=== PATIENT | male | born 1970 | race Caucasian/White ===

== ENCOUNTER 2016-09-30 02:35 | Inpatient (IN) | payer SELFPAY ==
[2016-09-30] VITALS (9 sets, daily range): BP systolic 119–158; BP diastolic 71–94
[~2016-09-30] VITALS: Ht 167.6 cm; Wt 61.7 kg
[~2016-09-30 02:35] MED LIST: CHLO5CAP3 PO; DEXA4TAB PO; L25 PO; PHEN100C4 PO
[2016-09-30] MEDS ORDERED: SODIUM CHLORIDE 0.9% 1,000 ML IV ONE (04:00)
[2016-09-30] MEDS ORDERED: LORAZEPAM 2MG/ML CPJ IV ONE (04:00)
[2016-09-30 04:10] LABS: HEMATOCRIT. 40.3 % (42.0-52.0); HEMOGLOBIN. 13.9 g/dL (14.0-18.0); MEAN CORPUSCULAR VOLUME 89.7 fL (80.0-94.0); MEAN PLATELET VOLUME 7.6 fl (7.4-10.4); PLATELET 136 x1000/uL (130-400); RED CELL DISTRIBUTION WIDTH 15.5 % (11.6-14.6)
[2016-09-30 04:29] LABS: CARBON DIOXIDE 25 mEq/L (21-32); CHLORIDE 99 mEq/L (98-107); ETHANOL BLOOD < 10 mg/dL
[2016-09-30] MEDS ORDERED: LORAZEPAM 2MG/ML CPJ ONE (04:32)
[2016-09-30] MEDS: LORAZEPAM 2MG/ML CPJ IV NR ×2 (04:58→06:10)
[2016-09-30] MEDS ORDERED: ACETAMINOPHEN 650MG SUPP ONE (04:58)
[2016-09-30] MEDS ORDERED: ACETAMINOPHEN 325MG SUPP ONE (04:58)
[2016-09-30] MEDS ORDERED: ACETAMINOPHEN 650MG SUPP PR ONE (05:00)
[2016-09-30] MEDS: LEVETIRACETAM 500MG PREMIX 100 ML IV NR ×2 (05:09→05:52)
[2016-09-30 07:31] LABS: PLATELET ESTIMATE NORMAL
[2016-09-30] MEDS ORDERED: DOCUSATE SODIUM 100MG CAPSULE PO PRN (08:30)
[2016-09-30] MEDS ORDERED: DIPHENHYDRAMINE 50MG/ML VIAL IV PRN (08:30)
[2016-09-30] MEDS ORDERED: MAGNESIUM/ALUMINUM HYDROXIDE/SIMETHICONE 30ML UDC PO PRN (08:30)
[2016-09-30] MEDS ORDERED: NA PHOS,M-B/NA PHOS,DI-BA ENEMA 118ML PR PRN (08:30)
[2016-09-30] MEDS ORDERED: GUAIFENESIN 200MG/10ML SUGAR FREE UDC PO PRN (08:30)
[2016-09-30] MEDS ORDERED: CLONIDINE 0.1MG TABLET PO PRN (08:30)
[2016-09-30] MEDS ORDERED: NITROGLYCERIN 0.4MG TABLET SL SL PRN (08:30)
[2016-09-30] MEDS ORDERED: ONDANSETRON HCL 4MG/2ML VIAL IV PRN (08:30)
[2016-09-30] MEDS ORDERED: ACETAMINOPHEN 325MG TABLET PO PRN (08:30)
[2016-09-30] MEDS ORDERED: IPRATROPIUM/ALBUTEROL 0.5-3(2.5)MG/3ML NEB INH PRN (08:30)
[2016-09-30] MEDS: METOPROLOL TARTRATE 25MG TABLET PO SCH ×2 (09:00→20:49)
[2016-09-30] MEDS: ENOXAPARIN 40MG/0.4ML SYR SUBCUT SCH (09:48)
[2016-09-30] MEDS: FAMOTIDINE 20MG/2ML VIAL IV SCH ×2 (09:48→20:49)
[2016-09-30] MEDS ORDERED: MVI, ADULT NO.1 10 ML, FOLIC ACID 1 MG, THIAMINE HCL 100 MG in SODIUM CHLORIDE 0.9% 1,0... IV SCH ×4 (10:00)
[2016-09-30] MEDS: SUCRALFATE 1 G/10 ML UDC PO SCH ×3 (13:04→20:49)
[2016-09-30] MEDS: CHLORDIAZEPOXIDE 25MG CAPSULE PO SCH ×2 (13:04→21:28)
[2016-09-30 15:25] LABS: CREATINE KINASE 543 IU/L (39-308); CREATINE KINASE MB FRACTION 1.9 ng/mL (0.5-3.6); TROPONIN I < 0.02 ng/mL (0.00-0.04)
[2016-09-30] MEDS: LORAZEPAM 2MG/ML CPJ IV PRN (19:39)
[2016-09-30 23:23] LABS: CREATINE KINASE 663 IU/L (39-308); CREATINE KINASE MB FRACTION 2.9 ng/mL (0.5-3.6); TROPONIN I < 0.02 ng/mL (0.00-0.04)
[2016-10-01] VITALS (7 sets, daily range): BP systolic 114–142; BP diastolic 71–82
[2016-10-01] MEDS: LORAZEPAM 2MG/ML CPJ IV PRN ×2 (00:46→05:12)
[2016-10-01] MEDS: CHLORDIAZEPOXIDE 25MG CAPSULE PO SCH (05:42)
[2016-10-01] MEDS: METOPROLOL TARTRATE 25MG TABLET PO SCH (10:29)
[2016-10-01] MEDS: FAMOTIDINE 20MG/2ML VIAL IV SCH (10:36)
[2016-10-01] MEDS: ENOXAPARIN 40MG/0.4ML SYR SUBCUT SCH (10:36)
[2016-10-01] MEDS: SUCRALFATE 1 G/10 ML UDC PO SCH (12:30)
== END 2016-10-01 14:05 | disposition home or self-care (01) | DRG 775 ==
LOC: ER 02:35 → 5EST 04:32 → EDBEDREQ 04:39 → EDBEDREQSVC 04:45 → ENRESERV 05:33
PROVIDERS: ADMIT Internal Medicine; ATTEND Internal Medicine
DX: F10.231 Alcohol dependence with withdrawal delirium (principal); G40.89 Other seizures; Y90.0 Blood alcohol level of less than 20 mg/100 ml; Z79.899 Other long term (current) drug therapy
CPT/HCPCS: 36415; 70450; 80053; 82550; 82553; 83036; 84484; 85025; 93005; 93970; 96365; 96372; 96375; 96376; 99291; G0482; J1650; J1953; J2060; J3411; J3490; J7030

== ENCOUNTER 2017-04-13 02:43 | Emergency (ER) | payer MEDICAID ==
[~2017-04-13] VITALS: Ht 170.2 cm; Wt 73.0 kg
[2017-04-13] MEDS ORDERED: ONDANSETRON HCL 4MG/2ML VIAL IV STA (04:30)
[2017-04-13] MEDS ORDERED: PHENYTOIN SODIUM 1,000 MG in SODIUM CHLORIDE 0.9% 100 ML IV ONE (04:30)
[2017-04-13] MEDS ORDERED: SODIUM CHLORIDE 0.9% 1,000 ML IV ONE (04:30)
[2017-04-13 04:52] LABS: HEMATOCRIT. 38.6 % (42.0-52.0); HEMOGLOBIN. 13.2 g/dL (14.0-18.0); MEAN CORPUSCULAR HEMOGLOBIN 31.1 pg (28.0-32.0); MEAN CORPUSCULAR VOLUME 90.7 fL (80.0-94.0); MEAN PLATELET VOLUME 7.1 fl (7.4-10.4); PLATELET 190 x1000/uL (130-400); RED BLOOD CELL COUNT 4.26 mill/uL (4.7-6.1); RED CELL DISTRIBUTION WIDTH 14.6 % (11.6-14.6)
[2017-04-13 05:09] LABS: CHLORIDE 98 mEq/L (98-107)
[2017-04-13 06:00] LABS: PLATELET ESTIMATE NORMAL
[2017-04-13 06:47] VITALS: BP 128/74
== END 2017-04-13 06:50 | disposition home or self-care (01) ==
LOC: ER 02:49
DX: G40.909 Epilepsy, unspecified, not intractable, without status epilepticus (principal); G93.89 Other specified disorders of brain; R25.1 Tremor, unspecified; J32.9 Chronic sinusitis, unspecified; F10.20 Alcohol dependence, uncomplicated; Z91.14 Patient's other noncompliance with medication regimen
CPT/HCPCS: 36415; 70450; 71045; 80053; 85025; 96365; 96375; 99285; J1165; J2405; J7030; J7050

== ENCOUNTER 2018-06-06 06:09 | Emergency (ER) | payer SELFPAY ==
[~2018-06-06] VITALS: Ht 165.1 cm; Wt 74.0 kg
[2018-06-06 07:58] LABS: HEMATOCRIT. 43.4 % (42.0-52.0); HEMOGLOBIN. 14.4 g/dL (14.0-18.0); MEAN CORPUSCULAR HEMOGLOBIN 31.2 pg (28.0-32.0); MEAN CORPUSCULAR VOLUME 94.2 fL (80.0-94.0); MEAN PLATELET VOLUME 7.5 fl (7.4-10.4); PLATELET 330 x1000/uL (130-400); RED BLOOD CELL COUNT 4.61 mill/uL (4.7-6.1); RED CELL DISTRIBUTION WIDTH 14.9 % (11.6-14.6)
[2018-06-06 08:05] LABS: CHLORIDE 102 mEq/L (98-107)
[2018-06-06 08:09] LABS: ETHANOL BLOOD < 10 mg/dL
[2018-06-06 08:14] LABS: PLATELET ESTIMATE NORMAL
[2018-06-06 09:00] LABS: CLARITY URINE CLEAR (CLEAR); COLOR URINE YELLOW (YELLOW); KETONES URINE TRACE (NEGATIVE); LEUKOCYTE ESTERASE URINE NEGATIVE (NEGATIVE); NITRITE URINE NEGATIVE (NEGATIVE); OCCULT BLOOD URINE NEGATIVE (NEGATIVE); PROTEIN URINE 1+ (NEGATIVE); SPECIFIC GRAVITY URINE 1.013 (1.005-1.030); UROBILINOGEN URINE 0.2 E.U./dL (0.2-1.0)
[2018-06-06] MEDS ORDERED: LEVETIRACETAM 1000MG/100ML 100 ML IV ONE (09:15)
[2018-06-06 09:23] LABS: *AMPHETAMINES SCREEN URINE NEGATIVE (NEGATIVE); *BARBITURATES SCREEN URINE NEGATIVE (NEGATIVE); *BENZODIAZEPINES SCREEN URINE PRESUMTIVE POSITIVE (NEGATIVE); *COCAINE SCREEN URINE NEGATIVE (NEGATIVE); METHADONE URINE SCREEN NEGATIVE (NEGATIVE); OPIATES URINE SCREEN NEGATIVE (NEGATIVE); PHENCYCLIDINE URINE SCREEN NEGATIVE (NEGATIVE)
[2018-06-06 09:24] LABS: CANNABINOID URINE SCREEN NEGATIVE (NEGATIVE)
[2018-06-06 11:48] VITALS: BP 143/86
== END 2018-06-06 11:57 | disposition home or self-care (01) ==
LOC: ER 06:09
DX: R56.9 Unspecified convulsions (principal); Z91.14 Patient's other noncompliance with medication regimen; Z79.899 Other long term (current) drug therapy
CPT/HCPCS: 36415; 80053; 80185; 80305; 80320; 81003; 85025; 96374; 99283; J1953; Z7610; G0480

== ENCOUNTER 2018-09-16 19:51 | Inpatient (IN) | payer SELFPAY ==
[~2018-09-16] VITALS: Ht 154.9 cm; Wt 72.6 kg
[2018-09-16] MEDS ORDERED: SODIUM CHLORIDE 0.9% 1,000 ML IV ONE (20:19)
[2018-09-16] MEDS ORDERED: LORAZEPAM 2MG/ML CPJ IV ONE ×2 (20:30→21:00)
[2018-09-16 21:06] LABS: HEMATOCRIT. 40.1 % (42.0-52.0); HEMOGLOBIN. 13.7 g/dL (14.0-18.0); MEAN CORPUSCULAR HEMOGLOBIN 31.8 pg (28.0-32.0); MEAN CORPUSCULAR VOLUME 93.1 fL (80.0-94.0); MEAN PLATELET VOLUME 7.5 fl (7.4-10.4); PLATELET 103 x1000/uL (130-400); RED BLOOD CELL COUNT 4.31 mill/uL (4.7-6.1); RED CELL DISTRIBUTION WIDTH 15.2 % (11.6-14.6)
[2018-09-16 21:08] LABS: CHLORIDE 99 mEq/L (98-107)
[2018-09-16 21:11] LABS: ETHANOL BLOOD < 10 mg/dL
[2018-09-16] MEDS ORDERED: LEVETIRACETAM 500MG PREMIX 100 ML IV ONE (21:15)
[2018-09-16 21:18] LABS: PLATELET ESTIMATE DECREASED
[2018-09-16] MEDS ORDERED: ONDANSETRON HCL 4MG/2ML INJ IV PRN (21:30)
[2018-09-16] MEDS ORDERED: IPRATROPIUM/ALBUTEROL 0.5-3(2.5)MG/3ML NEB INH PRN (21:30)
[2018-09-16] MEDS ORDERED: ACETAMINOPHEN 325MG TABLET PO PRN (21:30)
[2018-09-16] MEDS ORDERED: KETOROLAC 15MG/ML VIAL IV PRN (21:30)
[2018-09-16] MEDS ORDERED: DOCUSATE SODIUM 100MG CAPSULE PO PRN (21:30)
[2018-09-16] MEDS ORDERED: CLONIDINE 0.1MG TABLET PO PRN (21:30)
[2018-09-16] MEDS ORDERED: NITROGLYCERIN 0.4MG TABLET SL SL PRN (21:30)
[2018-09-16] MEDS ORDERED: CHLORDIAZEPOXIDE 25MG CAPSULE PO ONE (21:30)
[2018-09-16] MEDS ORDERED: LORAZEPAM 2MG/ML CPJ IV PRN (21:30)
[2018-09-16] MEDS ORDERED: GUAIFENESIN 200MG/10ML SUGAR FREE UDC PO PRN (21:30)
[2018-09-16] MEDS ORDERED: MAGNESIUM/ALUMINUM HYDROXIDE/SIMETHICONE 30ML UDC PO PRN (21:30)
[2018-09-16] MEDS ORDERED: CHLORDIAZEPOXIDE 25MG CAPSULE PO SCH (22:00)
[2018-09-16 22:05] LABS: TOTAL IRON BINDING CAPACITY 336 ug/dL (250-450)
[2018-09-16] MEDS ORDERED: LEVETIRACETAM 500MG PREMIX 100 ML IV NR (22:15)
[2018-09-16] MEDS ORDERED: CHLORDIAZEPOXIDE 25MG CAPSULE PO NR (22:15)
[2018-09-16 22:26] LABS: FOLIC ACID (FOLATE) SERUM 16.5 ng/mL (>5.38)
[2018-09-16 23:26] LABS: CLARITY URINE CLEAR (CLEAR); COLOR URINE YELLOW (YELLOW); KETONES URINE TRACE (NEGATIVE); LEUKOCYTE ESTERASE URINE NEGATIVE (NEGATIVE); NITRITE URINE NEGATIVE (NEGATIVE); OCCULT BLOOD URINE 1+ (NEGATIVE); PROTEIN URINE 2+ (NEGATIVE); SPECIFIC GRAVITY URINE 1.017 (1.005-1.030); UROBILINOGEN URINE 0.2 E.U./dL (0.2-1.0)
[2018-09-16 23:36] LABS: *AMPHETAMINES SCREEN URINE NEGATIVE (NEGATIVE); *BARBITURATES SCREEN URINE NEGATIVE (NEGATIVE); *BENZODIAZEPINES SCREEN URINE NEGATIVE (NEGATIVE); *COCAINE SCREEN URINE NEGATIVE (NEGATIVE); METHADONE URINE SCREEN NEGATIVE (NEGATIVE)
[2018-09-16 23:37] LABS: CANNABINOID URINE SCREEN NEGATIVE (NEGATIVE); OPIATES URINE SCREEN NEGATIVE (NEGATIVE); PHENCYCLIDINE URINE SCREEN NEGATIVE (NEGATIVE)
[2018-09-17] VITALS (7 sets, daily range): BP systolic 118–136; BP diastolic 78–90
[2018-09-17] MEDS ORDERED: MVI, ADULT NO.1 10 ML, FOLIC ACID 1 MG, THIAMINE HCL 100 MG in SODIUM CHLORIDE 0.9% 1,0... IV NR ×4 (06:00)
[2018-09-17] MEDS: CHLORDIAZEPOXIDE 5 MG CAPSULE PO SCH ×2 (07:00→14:46)
[2018-09-17] MEDS ORDERED: ENOXAPARIN 40MG/0.4ML SYR SUBCUT SCH (09:00)
[2018-09-17] MEDS ORDERED: FAMOTIDINE 20MG TABLET PO SCH (09:00)
[2018-09-17] MEDS ORDERED: METOPROLOL TARTRATE 25MG TABLET PO SCH (09:00)
== END 2018-09-17 18:15 | disposition home or self-care (01) | DRG 53 ==
LOC: ER 19:51 → 8WST 21:24 → EDBEDREQ 21:30 → EDBEDREQTM 21:30 → ENRESERV 09-17 00:54 → 8WST 09-17 04:00
PROVIDERS: ADMIT Internal Medicine; ATTEND Internal Medicine
DX: G40.909 Epilepsy, unspecified, not intractable, without status epilepticus (principal); D61.818 Other pancytopenia; F10.239 Alcohol dependence with withdrawal, unspecified; R74.0 Nonspecific elevation of levels of transaminase and lactic acid dehydrogenase [LDH]
CPT/HCPCS: 36415; 80185; 80305; 80320; 82607; 82746; 83036; 83540; 83550; 96361; 96365; 96366; 96375; 99291; C1893; J1650; J1953; J2060; J3411; J3490; J7030; G0480

== ENCOUNTER 2018-11-09 07:46 | Emergency (ER) | payer SELFPAY ==
[~2018-11-09] VITALS: Ht 172.7 cm; Wt 73.0 kg
[~2018-11-09 07:46] MED LIST changes: -CHLO5CAP3 PO
[2018-11-09 08:59] LABS: BASOPHILS % 0.5 % (0.0-2.0); EOSINOPHILS % 0.5 % (0.0-5.0); HEMATOCRIT. 40.4 % (42.0-52.0); HEMOGLOBIN. 13.6 g/dL (14.0-18.0); LYMPHOCYTES % 8.1 % (20.0-50.0); MEAN CORPUSCULAR HEMOGLOBIN 32.2 pg (28.0-32.0); MEAN CORPUSCULAR VOLUME 95.7 fL (80.0-94.0); MEAN PLATELET VOLUME 7.3 fl (7.4-10.4); MONOCYTES % 5.1 % (2.0-8.0); NEUTROPHILS % 85.8 % (40.0-76.0); PLATELET 175 x1000/uL (130-400); RED BLOOD CELL COUNT 4.22 mill/uL (4.7-6.1); RED CELL DISTRIBUTION WIDTH 14.6 % (11.6-14.6)
[2018-11-09 09:05] LABS: CHLORIDE 102 mEq/L (98-107)
[2018-11-09 09:06] LABS: PROTHROMBIN TIME 9.9 sec (9.6-11.0)
[2018-11-09 09:11] LABS: ETHANOL BLOOD < 10 mg/dL
[2018-11-09] MEDS ORDERED: DIAZEPAM 5 MG/ML 2ML CPJ IV ONE (09:30)
[2018-11-09 12:22] LABS: CLARITY URINE CLEAR (CLEAR); COLOR URINE YELLOW (YELLOW); KETONES URINE TRACE (NEGATIVE); LEUKOCYTE ESTERASE URINE NEGATIVE (NEGATIVE); NITRITE URINE NEGATIVE (NEGATIVE); OCCULT BLOOD URINE NEGATIVE (NEGATIVE); PROTEIN URINE 1+ (NEGATIVE); SPECIFIC GRAVITY URINE 1.017 (1.005-1.030); UROBILINOGEN URINE 0.2 E.U./dL (0.2-1.0)
[2018-11-09 12:49] LABS: *AMPHETAMINES SCREEN URINE NEGATIVE (NEGATIVE); *BARBITURATES SCREEN URINE NEGATIVE (NEGATIVE); *BENZODIAZEPINES SCREEN URINE NEGATIVE (NEGATIVE)
[2018-11-09 12:50] LABS: *COCAINE SCREEN URINE NEGATIVE (NEGATIVE); CANNABINOID URINE SCREEN NEGATIVE (NEGATIVE); METHADONE URINE SCREEN NEGATIVE (NEGATIVE); OPIATES URINE SCREEN NEGATIVE (NEGATIVE); PHENCYCLIDINE URINE SCREEN NEGATIVE (NEGATIVE)
[2018-11-09 13:40] VITALS: BP 147/98
== END 2018-11-09 13:42 | disposition home or self-care (01) ==
LOC: ER 08:15
DX: F10.239 Alcohol dependence with withdrawal, unspecified (principal); R56.9 Unspecified convulsions; R25.3 Fasciculation; Y90.0 Blood alcohol level of less than 20 mg/100 ml
CPT/HCPCS: 36415; 70450; 71045; 80053; 80305; 80320; 81003; 82140; 83880; 84484; 85025; 85610; 93005; 96374; 99284; J3360; Z7610; G0480

== ENCOUNTER 2018-12-06 15:26 | Inpatient (IN) | payer SELFPAY ==
[~2018-12-06] VITALS: Ht 165.1 cm; Wt 55.3 kg
[2018-12-06] MEDS ORDERED: LORAZEPAM 2MG/ML CPJ ONE (16:05)
[2018-12-06] MEDS ORDERED: SODIUM CHLORIDE 0.9% 1,000 ML IV ONE (16:08)
[2018-12-06] MEDS ORDERED: LEVETIRACETAM 1000MG/100ML 100 ML IV ONE (16:15)
[2018-12-06 16:45] LABS: HEMATOCRIT. 41.9 % (42.0-52.0); HEMOGLOBIN. 13.9 g/dL (14.0-18.0); MEAN CORPUSCULAR HEMOGLOBIN 32.1 pg (28.0-32.0); MEAN CORPUSCULAR VOLUME 97.1 fL (80.0-94.0); PLATELET 145 x1000/uL (130-400); RED BLOOD CELL COUNT 4.32 mill/uL (4.7-6.1); RED CELL DISTRIBUTION WIDTH 14.5 % (11.6-14.6)
[2018-12-06 16:50] LABS: CHLORIDE 99 mEq/L (98-107)
[2018-12-06 16:53] LABS: ETHANOL BLOOD < 10 mg/dL
[2018-12-06 17:02] LABS: PLATELET ESTIMATE NORMAL
[2018-12-06 17:07] LABS: CARBAMAZEPINE < 0.5 ug/mL (4-12); PHENOBARBITAL < 2.1 ug/mL (15.0-40.0)
[2018-12-06] MEDS ORDERED: ONDANSETRON HCL 4MG/2ML INJ IV PRN (18:15)
[2018-12-06] MEDS ORDERED: MAGNESIUM/ALUMINUM HYDROXIDE/SIMETHICONE 30ML UDC PO PRN (18:15)
[2018-12-06] MEDS ORDERED: ZOLPIDEM TARTRATE 5MG TABLET PO PRN (18:15)
[2018-12-06] MEDS ORDERED: LORAZEPAM 2MG/ML CPJ IV PRN (18:15)
[2018-12-06] MEDS ORDERED: GUAIFENESIN 200MG/10ML SUGAR FREE UDC PO PRN (18:15)
[2018-12-06] MEDS ORDERED: NITROGLYCERIN 0.4MG TABLET SL SL PRN (18:15)
[2018-12-06] MEDS ORDERED: DOCUSATE SODIUM 100MG CAPSULE PO PRN (18:15)
[2018-12-06] MEDS ORDERED: ACETAMINOPHEN 325MG TABLET PO PRN (18:15)
[2018-12-06] MEDS ORDERED: CLONIDINE 0.1MG TABLET PO PRN (18:15)
[2018-12-06] MEDS ORDERED: KETOROLAC 15MG/ML VIAL IV PRN (18:15)
[2018-12-06 18:34] LABS: TOTAL IRON BINDING CAPACITY 352 ug/dL (250-450)
[2018-12-06 18:48] LABS: FOLIC ACID (FOLATE) SERUM >20 ng/mL ng/mL (>5.38)
[2018-12-06 19:00] LABS: VITAMIN B12 SERUM 1250 pg/mL (211-911)
[2018-12-06 19:36] LABS: CLARITY URINE CLEAR (CLEAR); COLOR URINE YELLOW (YELLOW); KETONES URINE TRACE (NEGATIVE); LEUKOCYTE ESTERASE URINE NEGATIVE (NEGATIVE); NITRITE URINE NEGATIVE (NEGATIVE); OCCULT BLOOD URINE TRACE (NEGATIVE); PH URINE 6.5 (4.5-8.0); PROTEIN URINE 2+ (NEGATIVE); SPECIFIC GRAVITY URINE 1.018 (1.005-1.030); UROBILINOGEN URINE 0.2 E.U./dL (0.2-1.0)
[2018-12-06 19:56] LABS: *AMPHETAMINES SCREEN URINE NEGATIVE (NEGATIVE); *BARBITURATES SCREEN URINE NEGATIVE (NEGATIVE)
[2018-12-06 19:57] LABS: *BENZODIAZEPINES SCREEN URINE NEGATIVE (NEGATIVE); *COCAINE SCREEN URINE NEGATIVE (NEGATIVE); CANNABINOID URINE SCREEN NEGATIVE (NEGATIVE); METHADONE URINE SCREEN NEGATIVE (NEGATIVE); OPIATES URINE SCREEN NEGATIVE (NEGATIVE); PHENCYCLIDINE URINE SCREEN NEGATIVE (NEGATIVE)
[2018-12-06 22:00] VITALS: BP 133/82
[2018-12-06] MEDS ORDERED: MVI, ADULT NO.1 10 ML, FOLIC ACID 1 MG, THIAMINE HCL 100 MG in SODIUM CHLORIDE 0.9% 1,0... IV SCH ×4 (23:00)
[2018-12-07] VITALS: BP 128/77
[2018-12-07] MEDS: LEVETIRACETAM 500MG TABLET PO SCH ×2 (00:21→09:11)
[2018-12-07] MEDS: FAMOTIDINE 20MG TABLET PO SCH ×2 (00:21→09:11)
[2018-12-07 04:00] VITALS: BP 133/85
[2018-12-07 08:40] VITALS: BP 148/94
[2018-12-07] MEDS ORDERED: ENOXAPARIN 40MG/0.4ML SYR SUBCUT SCH (09:00)
[2018-12-07 11:35] VITALS: BP 148/94
[2018-12-07 12:28] VITALS: BP 133/84
== END 2018-12-07 15:55 | disposition home or self-care (01) | DRG 53 ==
LOC: ER 15:26 → 6WST 18:04 → EDBEDREQ 18:07 → EDBEDREQTM 18:07 → ENRESERV 20:45
PROVIDERS: ADMIT Internal Medicine; ATTEND Internal Medicine
DX: G40.909 Epilepsy, unspecified, not intractable, without status epilepticus (principal); G92 Toxic encephalopathy; D64.9 Anemia, unspecified; E87.1 Hypo-osmolality and hyponatremia; F10.239 Alcohol dependence with withdrawal, unspecified; R74.0 Nonspecific elevation of levels of transaminase and lactic acid dehydrogenase [LDH]
CPT/HCPCS: 36415; 71045; 80156; 80165; 80184; 80185; 80305; 80307; 80320; 80329; 81003; 82140; 82607; 82746; 83540; 83550; 84443; 84484; 93005; 93970; 99285; J1650; J1953; J2060; J3411; J3490; J7030; G0480

== ENCOUNTER 2019-05-28 19:22 | Inpatient (IN) | payer MEDICAID ==
[~2019-05-28] VITALS: Ht 170.2 cm; Wt 65.8 kg
[2019-05-28] MEDS ORDERED: LORAZEPAM 2MG/ML CPJ IV ONE ×2 (19:30)
[2019-05-28] MEDS ORDERED: LORAZEPAM 2MG/ML CPJ ONE (19:35)
[2019-05-28] MEDS ORDERED: MIDAZOLAM HCL 50 MG in DEXTROSE 5% WATER 40 ML IV ONE (19:45)
[2019-05-28] MEDS ORDERED: LEVETIRACETAM 1000MG/100ML 100 ML IV ONE (19:45)
[2019-05-28] MEDS ORDERED: ETOMIDATE 2MG/ML 10ML VIAL IV ONE ×2 (19:45)
[2019-05-28] MEDS ORDERED: VECURONIUM BROMIDE 10 MG/VIAL IV ONE (19:45)
[2019-05-28] MEDS ORDERED: PROPOFOL 10MG/ML 100ML 100 ML IV ONE (19:45)
[2019-05-28] MEDS ORDERED: SODIUM CHLORIDE 0.9% 10ML VIAL ONE (19:45)
[2019-05-28] MEDS ORDERED: VANCOMYCIN 1 G PREMIX 200 ML IV ONE (19:45)
[2019-05-28] MEDS ORDERED: ACETAMINOPHEN 650MG SUPP PR ONE (19:45)
[2019-05-28] MEDS ORDERED: SODIUM CHLORIDE 0.9% 1000ML BAG (SEPSIS BOLUS) IV ONE (19:45)
[2019-05-28] MEDS ORDERED: CEFTRIAXONE 2 G PREMIX 50 ML IV ONE (19:45)
[2019-05-28] MEDS ORDERED: DEXAMETHASONE 10 MG in SODIUM CHLORIDE 0.9% 50 ML IV NR (20:00)
[2019-05-28 20:48] LABS: BG BASE EXCESS -1.8 mmol/L (-2.0-2.0); BG CARBOXYHEMOGLOBIN 0.1 % (0.5-1.5); BG DEOXYHEMOGLOBIN 0.4 % (0.0-5.0); BG FRACTION INSPIRED OXYGEN 75; BG HCO3 ACT 19.8 mmol/L (22.0-26.0); BG METHEMOGLOBIN 0.5 % (0.0-1.5); BG OXYGEN SATURATION 99.6 % (92.0-98.5); BG PCO2 26.4 mmHg (35.0-45.0); BG PH 7.494 (7.350-7.450); BG PO2 377.5 mmHg (75.0-100.0); BG SAMPLE SITE RIGHT FEMORAL; BG TIDAL VOLUME(mL) 550 mL; BG TOTAL HEMOGLOBIN 14.4 g/dL (12.0-18.0); BG VENT MODE VENT - A/C; BG VENT RATE 18 set
[2019-05-28 21:33] LABS: HEMATOCRIT. 43.8 % (42.0-52.0); HEMOGLOBIN. 14.8 g/dL (14.0-18.0); MEAN CORPUSCULAR HEMOGLOBIN 32.3 pg (28.0-32.0); MEAN CORPUSCULAR VOLUME 95.2 fL (80.0-94.0); MEAN PLATELET VOLUME 7.7 fl (7.4-10.4); PLATELET 270 x1000/uL (130-400); RED BLOOD CELL COUNT 4.59 mill/uL (4.7-6.1); RED CELL DISTRIBUTION WIDTH 15.5 % (11.6-14.6)
[2019-05-28 21:40] LABS: CHLORIDE 104 mEq/L (98-107)
[2019-05-28 21:42] LABS: PROTHROMBIN TIME 10.7 sec (9.6-11.0)
[2019-05-28 21:44] LABS: COLOR URINE YELLOW (YELLOW); ETHANOL BLOOD < 10 mg/dL; KETONES URINE 1+ (NEGATIVE); LEUKOCYTE ESTERASE URINE NEGATIVE (NEGATIVE); NITRITE URINE NEGATIVE (NEGATIVE); OCCULT BLOOD URINE 3+ (NEGATIVE); PH URINE 5.5 (4.5-8.0); PROTEIN URINE 2+ (NEGATIVE); SPECIFIC GRAVITY URINE 1.023 (1.005-1.030); UROBILINOGEN URINE 0.2 E.U./dL (0.2-1.0)
[2019-05-28 21:50] LABS: CARBAMAZEPINE < 0.5 ug/mL (4-12)
[2019-05-28 21:51] LABS: PHENOBARBITAL < 2.1 ug/mL (15.0-40.0); VALPROIC ACID < 3.0 ug/mL (50-100)
[2019-05-28 21:55] LABS: CLARITY URINE HAZY (CLEAR)
[2019-05-28 21:58] LABS: PLATELET ESTIMATE NORMAL
[2019-05-28 22:16] LABS: *AMPHETAMINES SCREEN URINE NEGATIVE (NEGATIVE); *BARBITURATES SCREEN URINE NEGATIVE (NEGATIVE); *COCAINE SCREEN URINE NEGATIVE (NEGATIVE)
[2019-05-28 22:17] LABS: *BENZODIAZEPINES SCREEN URINE PRESUMTIVE POSITIVE (NEGATIVE); CANNABINOID URINE SCREEN NEGATIVE (NEGATIVE); METHADONE URINE SCREEN NEGATIVE (NEGATIVE); OPIATES URINE SCREEN NEGATIVE (NEGATIVE); PHENCYCLIDINE URINE SCREEN NEGATIVE (NEGATIVE)
[2019-05-28] MEDS ORDERED: MIDAZOLAM HCL 50 MG in DEXTROSE 5% WATER 40 ML IV PRN (22:45)
[2019-05-28] MEDS ORDERED: FENTANYL CITRATE/PF 500 MCG in SODIUM CHLORIDE 0.9% 40 ML IV PRN (22:45)
[2019-05-28] MEDS ORDERED: IPRATROPIUM/ALBUTEROL 0.5-3(2.5)MG/3ML NEB HHN PRN (22:45)
[2019-05-28] MEDS ORDERED: LORAZEPAM 2MG/ML CPJ IV PRN (22:45)
[2019-05-29] VITALS (43 sets, daily range): BP systolic 88–113; BP diastolic 40–80
[2019-05-29] MEDS ORDERED: PIPERACILLIN/TAZ 3.375G PREMIX 50 ML IV SCH (01:15)
[2019-05-29] MEDS ORDERED: ZOLPIDEM TARTRATE 5MG TABLET PO PRN (01:15)
[2019-05-29] MEDS ORDERED: ONDANSETRON HCL 4MG/2ML INJ IV PRN (01:15)
[2019-05-29] MEDS ORDERED: ACETAMINOPHEN 325MG TABLET PO PRN ×2 (01:15)
[2019-05-29] MEDS ORDERED: LEVETIRACETAM 500 MG in SODIUM CHLORIDE 0.9% 100 ML IV SCH (01:15)
[2019-05-29] MEDS: FENTANYL CITRATE/PF 500 MCG in SODIUM CHLORIDE 0.9% 40 ML IV PRN ×3 (01:28→21:57)
[2019-05-29] MEDS: IPRATROPIUM/ALBUTEROL 0.5-3(2.5)MG/3ML NEB HHN SCH ×2 (01:46→20:23)
[2019-05-29] MEDS: DEXT 5%/0.45% NACL 1000ML 1,000 ML IV SCH ×3 (02:36→22:57)
[2019-05-29] MEDS: MIDAZOLAM HCL 50 MG in DEXTROSE 5% WATER 40 ML IV PRN ×3 (03:30→16:37)
[2019-05-29] MEDS ORDERED: MVI, ADULT NO.1 10 ML, FOLIC ACID 1 MG, THIAMINE HCL 100 MG in SODIUM CHLORIDE 0.9% 1,0... IV SCH ×4 (04:00)
[2019-05-29] MEDS: PIPERACILLIN/TAZOBACTAM 3.375 G in DEXT 5% WATER 100 ML IV SCH ×2 (05:34→13:53)
[2019-05-29 06:16] LABS: BASOPHILS % 0.2 % (0.0-2.0); HEMATOCRIT. 38.3 % (42.0-52.0); HEMOGLOBIN. 12.8 g/dL (14.0-18.0); MEAN CORPUSCULAR VOLUME 95.5 fL (80.0-94.0); MEAN PLATELET VOLUME 7.7 fl (7.4-10.4); MONOCYTES % 6.7 % (2.0-8.0); NEUTROPHILS % 86.1 % (40.0-76.0); PLATELET 221 x1000/uL (130-400); RED BLOOD CELL COUNT 4.01 mill/uL (4.7-6.1); RED CELL DISTRIBUTION WIDTH 15.1 % (11.6-14.6)
[2019-05-29 06:27] LABS: CHLORIDE 107 mEq/L (98-107)
[2019-05-29 08:30] LABS: BG BASE EXCESS 0.8 mmol/L (-2.0-2.0); BG CARBOXYHEMOGLOBIN 0.2 % (0.5-1.5); BG DEOXYHEMOGLOBIN 0.7 % (0.0-5.0); BG HCO3 ACT 23.5 mmol/L (22.0-26.0); BG METHEMOGLOBIN 0.2 % (0.0-1.5); BG OXYGEN SATURATION 99.3 % (92.0-98.5); BG OXYHEMOGLOBIN 98.9 % (94.0-97.0); BG PCO2 31.7 mmHg (35.0-45.0); BG PH 7.488 (7.350-7.450); BG PO2 202.9 mmHg (75.0-100.0); BG SAMPLE SITE RIGHT BRACHIAL; BG TIDAL VOLUME(mL) 550 mL; BG TOTAL HEMOGLOBIN 12.8 g/dL (12.0-18.0); BG VENT MODE VENT - A/C; BG VENT RATE 14 set
[2019-05-29] MEDS: LEVETIRACETAM 500MG PREMIX 100 ML IV SCH ×2 (08:45→21:06)
[2019-05-29] MEDS ORDERED: POTASSIUM CHLORIDE INJ 40 MEQ in DEXT 5% WATER 250 ML IV ONE (10:00)
[2019-05-29] MEDS ORDERED: CEFTRIAXONE 2 G PREMIX 50 ML IV SCH (14:15)
[2019-05-29] MEDS ORDERED: VANCOMYCIN 750 MG in DEXT 5% WATER 250 ML IV SCH (16:00)
[2019-05-29] MEDS ORDERED: VANCOMYCIN 750 MG PREMIX 150 ML IV SCH (16:00)
[2019-05-29] MEDS ORDERED: VANCOMYCIN 1500MG in DEXTROSE 5% WATER 250ML IV SCH (16:00)
[2019-05-29] MEDS: CEFTRIAXONE 2 G in DEXTROSE 5% WATER 50 ML IV SCH (20:27)
[2019-05-29] MEDS: ENOXAPARIN 40MG/0.4ML SYR SUBCUT SCH (21:06)
[2019-05-29] MEDS: VANCOMYCIN 1,000 MG in DEXT 5% WATER 250 ML IV SCH (23:04)
[2019-05-30] VITALS (40 sets, daily range): BP systolic 86–133; BP diastolic 61–93
[2019-05-30] MEDS: IPRATROPIUM/ALBUTEROL 0.5-3(2.5)MG/3ML NEB HHN SCH ×4 (02:17→21:08)
[2019-05-30] MEDS: MIDAZOLAM HCL 50 MG in DEXTROSE 5% WATER 40 ML IV PRN (03:02)
[2019-05-30 05:44] LABS: CHLORIDE 105 mEq/L (98-107)
[2019-05-30 05:49] LABS: BASOPHILS % 0.4 % (0.0-2.0); EOSINOPHILS % 0.2 % (0.0-5.0); HEMATOCRIT. 35.7 % (42.0-52.0); HEMOGLOBIN. 11.9 g/dL (14.0-18.0); LYMPHOCYTES % 21.2 % (20.0-50.0); MEAN CORPUSCULAR HEMOGLOBIN 32.2 pg (28.0-32.0); MEAN CORPUSCULAR VOLUME 96.3 fL (80.0-94.0); MEAN PLATELET VOLUME 8.1 fl (7.4-10.4); MONOCYTES % 7.4 % (2.0-8.0); NEUTROPHILS % 70.8 % (40.0-76.0); PLATELET 211 x1000/uL (130-400); RED BLOOD CELL COUNT 3.71 mill/uL (4.7-6.1); RED CELL DISTRIBUTION WIDTH 14.7 % (11.6-14.6)
[2019-05-30 05:50] LABS: PHOSPHORUS 2.1 mg/dL (2.5-4.9)
[2019-05-30] MEDS: VANCOMYCIN 1,000 MG in DEXT 5% WATER 250 ML IV SCH (05:51)
[2019-05-30] MEDS: FENTANYL CITRATE/PF 500 MCG in SODIUM CHLORIDE 0.9% 40 ML IV PRN (07:46)
[2019-05-30] MEDS: DEXT 5%/0.45% NACL 1000ML 1,000 ML IV SCH ×2 (08:08→19:16)
[2019-05-30] MEDS: LEVETIRACETAM 500MG PREMIX 100 ML IV SCH ×2 (08:08→21:24)
[2019-05-30] MEDS: PANTOPRAZOLE SODIUM 40 MG/VIAL IV SCH (08:24)
[2019-05-30 08:44] LABS: BG BASE EXCESS 0.6 mmol/L (-2.0-2.0); BG CARBOXYHEMOGLOBIN 0.2 % (0.5-1.5); BG DEOXYHEMOGLOBIN 1.4 % (0.0-5.0); BG FRACTION INSPIRED OXYGEN 30; BG HCO3 ACT 24.2 mmol/L (22.0-26.0); BG METHEMOGLOBIN 0.1 % (0.0-1.5); BG OXYGEN SATURATION 98.6 % (92.0-98.5); BG OXYHEMOGLOBIN 98.3 % (94.0-97.0); BG PCO2 35.5 mmHg (35.0-45.0); BG PH 7.452 (7.350-7.450); BG PO2 122.6 mmHg (75.0-100.0); BG SAMPLE SITE RIGHT RADIAL; BG TIDAL VOLUME(mL) 550 mL; BG TOTAL HEMOGLOBIN 11.7 g/dL (12.0-18.0); BG VENT MODE VENT - A/C; BG VENT RATE 14 set
[2019-05-30] MEDS ORDERED: POTASSIUM PHOS,M-BASIC-D-BASIC 20 MMOL in DEXT 5% WATER 243.3333 ML IV ONE (11:00)
[2019-05-30 13:12] LABS: BG BASE EXCESS 2.2 mmol/L (-2.0-2.0); BG CARBOXYHEMOGLOBIN 0.4 % (0.5-1.5); BG DEOXYHEMOGLOBIN 1.1 % (0.0-5.0); BG FRACTION INSPIRED OXYGEN 30; BG HCO3 ACT 25.1 mmol/L (22.0-26.0); BG METHEMOGLOBIN 0.3 % (0.0-1.5); BG OXYGEN SATURATION 98.9 % (92.0-98.5); BG OXYHEMOGLOBIN 98.2 % (94.0-97.0); BG PCO2 33.4 mmHg (35.0-45.0); BG PH 7.494 (7.350-7.450); BG PO2 130.4 mmHg (75.0-100.0); BG PRESSURE SUPPORT 8; BG SAMPLE SITE RIGHT RADIAL; BG TOTAL HEMOGLOBIN 12.5 g/dL (12.0-18.0); BG VENT MODE VENT - CPAP
[2019-05-30] MEDS ORDERED: MIDODRINE HCL 5MG TABLET PO SCH (14:00)
[2019-05-30] MEDS: VANCOMYCIN 1250MG in DEXTROSE 5% WATER 250ML IV SCH ×2 (14:44→22:10)
[2019-05-30] MEDS: CHLORDIAZEPOXIDE 25MG CAPSULE PO SCH ×2 (18:00→21:23)
[2019-05-30] MEDS: CEFTRIAXONE 2 G in DEXTROSE 5% WATER 50 ML IV SCH (19:52)
[2019-05-30] MEDS: FOLIC ACID 1MG TABLET PO SCH (21:23)
[2019-05-30] MEDS: ENOXAPARIN 40MG/0.4ML SYR SUBCUT SCH (21:23)
[2019-05-30] MEDS: THIAMINE HCL 100MG TABLET PO SCH (21:23)
[2019-05-31] VITALS (15 sets, daily range): BP systolic 112–158; BP diastolic 53–99
[2019-05-31] MEDS: IPRATROPIUM/ALBUTEROL 0.5-3(2.5)MG/3ML NEB HHN SCH ×4 (02:18→21:48)
[2019-05-31] MEDS: DEXT 5%/0.45% NACL 1000ML 1,000 ML IV SCH ×2 (05:23→14:11)
[2019-05-31] MEDS: VANCOMYCIN 1250MG in DEXTROSE 5% WATER 250ML IV SCH ×3 (05:26→21:44)
[2019-05-31] MEDS: CHLORDIAZEPOXIDE 25MG CAPSULE PO SCH ×3 (05:28→21:44)
[2019-05-31] MEDS: LEVETIRACETAM 500MG PREMIX 100 ML IV SCH (07:48)
[2019-05-31] MEDS: THIAMINE HCL 100MG TABLET PO SCH (07:48)
[2019-05-31] MEDS: FOLIC ACID 1MG TABLET PO SCH (07:48)
[2019-05-31] MEDS: PANTOPRAZOLE SODIUM 40 MG/VIAL IV SCH (07:48)
[2019-05-31] MEDS ORDERED: POTASSIUM PHOS,M-BASIC-D-BASIC 20 MMOL in DEXT 5% WATER 243.3333 ML IV NR (18:00)
[2019-05-31] MEDS: LEVETIRACETAM 500MG/5ML CUP PO SCH (20:24)
[2019-05-31] MEDS: CEFTRIAXONE 2 G in DEXTROSE 5% WATER 50 ML IV SCH (20:24)
[2019-05-31] MEDS: ENOXAPARIN 40MG/0.4ML SYR SUBCUT SCH (20:25)
[2019-06-01] VITALS (7 sets, daily range): BP systolic 104–118; BP diastolic 64–83
[2019-06-01] MEDS: IPRATROPIUM/ALBUTEROL 0.5-3(2.5)MG/3ML NEB HHN SCH ×3 (01:04→22:08)
[2019-06-01] MEDS: VANCOMYCIN 1250MG in DEXTROSE 5% WATER 250ML IV SCH (06:20)
[2019-06-01] MEDS: CHLORDIAZEPOXIDE 25MG CAPSULE PO SCH ×3 (06:20→21:40)
[2019-06-01 06:21] LABS: CHLORIDE 104 mEq/L (98-107)
[2019-06-01 06:32] LABS: VANCOMYCIN TROUGH 15.9 ug/mL (5.0-10.0)
[2019-06-01 07:48] LABS: BASOPHILS % 0.5 % (0.0-2.0); EOSINOPHILS % 0.7 % (0.0-5.0); LYMPHOCYTES % 17.4 % (20.0-50.0); MEAN CORPUSCULAR HEMOGLOBIN 32.4 pg (28.0-32.0); MEAN CORPUSCULAR VOLUME 94.6 fL (80.0-94.0); MEAN PLATELET VOLUME 8.8 fl (7.4-10.4); MONOCYTES % 8.8 % (2.0-8.0); NEUTROPHILS % 72.6 % (40.0-76.0); PLATELET 262 x1000/uL (130-400); RED BLOOD CELL COUNT 4.22 mill/uL (4.7-6.1); RED CELL DISTRIBUTION WIDTH 14.6 % (11.6-14.6)
[2019-06-01 07:50] LABS: HEMATOCRIT. 39.9 % (42.0-52.0); HEMOGLOBIN. 13.7 g/dL (14.0-18.0)
[2019-06-01] MEDS: THIAMINE HCL 100MG TABLET PO SCH (08:57)
[2019-06-01] MEDS: FOLIC ACID 1MG TABLET PO SCH (08:57)
[2019-06-01] MEDS: FAMOTIDINE 20MG TABLET PO SCH ×2 (08:57→21:41)
[2019-06-01] MEDS: LEVETIRACETAM 500MG/5ML CUP PO SCH ×2 (08:57→21:41)
[2019-06-01] MEDS ORDERED: POTASSIUM CHLORIDE 20MEQ TABLET SR PO SCH (10:45)
[2019-06-01] MEDS: VANCOMYCIN 1500MG in DEXTROSE 5% WATER 250ML IV SCH ×2 (14:58→23:36)
[2019-06-01] MEDS: ENOXAPARIN 40MG/0.4ML SYR SUBCUT SCH (21:41)
[2019-06-01] MEDS: CEFTRIAXONE 2 G in DEXTROSE 5% WATER 50 ML IV SCH (21:41)
[2019-06-02 04:00] VITALS: BP 117/76
[2019-06-02] MEDS: VANCOMYCIN 1500MG in DEXTROSE 5% WATER 250ML IV SCH ×3 (05:31→21:38)
[2019-06-02] MEDS: CHLORDIAZEPOXIDE 25MG CAPSULE PO SCH (05:31)
[2019-06-02 08:00] VITALS: BP 104/74
[2019-06-02] MEDS: IPRATROPIUM/ALBUTEROL 0.5-3(2.5)MG/3ML NEB HHN SCH ×2 (08:30→17:22)
[2019-06-02] MEDS: LEVETIRACETAM 500MG/5ML CUP PO SCH ×2 (09:35→20:03)
[2019-06-02] MEDS: FOLIC ACID 1MG TABLET PO SCH (09:36)
[2019-06-02] MEDS: THIAMINE HCL 100MG TABLET PO SCH (09:36)
[2019-06-02] MEDS: FAMOTIDINE 20MG TABLET PO SCH ×2 (09:36→20:03)
[2019-06-02 12:00] VITALS: BP 105/80
[2019-06-02] MEDS ORDERED: LORAZEPAM 2MG/ML CPJ IV PRN (14:30)
[2019-06-02] MEDS: DEXT 5%/0.45% NACL 1000ML 1,000 ML IV SCH (15:26)
[2019-06-02 16:38] LABS: PHOSPHORUS 3.3 mg/dL (2.5-4.9)
[2019-06-02 20:00] VITALS: BP 126/86
[2019-06-02] MEDS: CEFTRIAXONE 2 G in DEXTROSE 5% WATER 50 ML IV SCH (20:03)
[2019-06-02] MEDS: ENOXAPARIN 40MG/0.4ML SYR SUBCUT SCH (20:04)
[2019-06-03] VITALS (7 sets, daily range): BP systolic 102–130; BP diastolic 69–90
[2019-06-03] MEDS: IPRATROPIUM/ALBUTEROL 0.5-3(2.5)MG/3ML NEB HHN SCH ×2 (00:58→08:39)
[2019-06-03] MEDS: DEXT 5%/0.45% NACL 1000ML 1,000 ML IV SCH ×2 (03:21→17:40)
[2019-06-03] MEDS: VANCOMYCIN 1500MG in DEXTROSE 5% WATER 250ML IV SCH ×2 (05:00→15:49)
[2019-06-03 07:50] LABS: BASOPHILS % 1.1 % (0.0-2.0); EOSINOPHILS % 2.1 % (0.0-5.0); HEMATOCRIT. 39.2 % (42.0-52.0); HEMOGLOBIN. 13.5 g/dL (14.0-18.0); LYMPHOCYTES % 12.4 % (20.0-50.0); MEAN CORPUSCULAR VOLUME 95.6 fL (80.0-94.0); MEAN PLATELET VOLUME 8.4 fl (7.4-10.4); MONOCYTES % 8.1 % (2.0-8.0); NEUTROPHILS % 76.3 % (40.0-76.0); PLATELET 309 x1000/uL (130-400); RED BLOOD CELL COUNT 4.11 mill/uL (4.7-6.1); RED CELL DISTRIBUTION WIDTH 14.6 % (11.6-14.6)
[2019-06-03 08:10] LABS: CHLORIDE 102 mEq/L (98-107)
[2019-06-03] MEDS: FAMOTIDINE 20MG TABLET PO SCH (08:20)
[2019-06-03] MEDS: THIAMINE HCL 100MG TABLET PO SCH (08:20)
[2019-06-03] MEDS: LEVETIRACETAM 500MG/5ML CUP PO SCH (08:20)
[2019-06-03] MEDS: FOLIC ACID 1MG TABLET PO SCH (08:20)
== END 2019-06-03 20:15 | disposition home or self-care (01) | DRG 720 ==
LOC: ER 19:22 → EDBEDREQ 21:50 → CVICU 22:09 → ENRESERV 22:24 → 5WST 05-31 11:30
PROVIDERS: ADMIT Internal Medicine; ATTEND Internal Medicine
PROC: 0BH18EZ Insertion of Endotracheal Airway into Trachea, Via Natural or Artificial Opening Endoscopic (ICD-10-PCS; principal; 2019-05-28)
PROC: 5A1945Z Respiratory Ventilation, 24-96 Consecutive Hours (ICD-10-PCS; 2019-05-28)
DX: A41.1 Sepsis due to other specified staphylococcus (principal); J96.00 Acute respiratory failure, unspecified whether with hypoxia or hypercapnia; I50.9 Heart failure, unspecified; E83.39 Other disorders of phosphorus metabolism; G40.901 Epilepsy, unspecified, not intractable, with status epilepticus; F10.239 Alcohol dependence with withdrawal, unspecified; E87.6 Hypokalemia; I47.1 Supraventricular tachycardia; Z82.49 Family history of ischemic heart disease and other diseases of the circulatory system; Z87.891 Personal history of nicotine dependence; Z78.1 Physical restraint status
CPT/HCPCS: 36415; 36600; 71045; 80048; 80051; 80053; 80156; 80165; 80184; 80185; 80202; 80305; 80320; 81003; 82375; 82805; 83605; 83735; 83880; 84100; 84145; 84443; 84484; 85025; 86850; 86900; 87070; 87420; 87804; 93005; 93306; 93970; 94002; 94003; 94640; 96365; 97116; 97162; 99291; C9113; J0696; J1100; J1650; J1953; J2060; J2250; J2543; J2704; J3010; J3370; J3411; J3480; J3490; J7030; J7060; G0480

== ENCOUNTER 2019-10-18 13:09 | Emergency (ER) | payer MEDICAID ==
[~2019-10-18] VITALS: Ht 175.3 cm; Wt 77.0 kg
[2019-10-18] MEDS ORDERED: LEVE500T9 PO (13:17)
[2019-10-18 15:00] LABS: CHLORIDE 101 mEq/L (98-107)
[2019-10-18 15:04] LABS: ETHANOL BLOOD < 10 mg/dL; HEMATOCRIT. 40.7 % (42.0-52.0); HEMOGLOBIN. 13.8 g/dL (14.0-18.0); MEAN CORPUSCULAR HEMOGLOBIN 31.7 pg (28.0-32.0); MEAN PLATELET VOLUME 7.4 fl (7.4-10.4); PLATELET 151 x1000/uL (130-400); RED BLOOD CELL COUNT 4.37 mill/uL (4.7-6.1)
[2019-10-18 15:10] LABS: PHENOBARBITAL < 2.1 ug/mL (15.0-40.0)
[2019-10-18] MEDS ORDERED: PHENYTOIN SODIUM 1,000 MG in SODIUM CHLORIDE 0.9% 100 ML IV ONE (15:30)
[2019-10-18 15:46] LABS: CLARITY URINE CLEAR (CLEAR); COLOR URINE YELLOW (YELLOW); KETONES URINE NEGATIVE (NEGATIVE); LEUKOCYTE ESTERASE URINE NEGATIVE (NEGATIVE); NITRITE URINE NEGATIVE (NEGATIVE); OCCULT BLOOD URINE TRACE (NEGATIVE); PH URINE 6.5 (4.5-8.0); PROTEIN URINE 2+ (NEGATIVE); SPECIFIC GRAVITY URINE 1.021 (1.005-1.030); UROBILINOGEN URINE 0.2 E.U./dL (0.2-1.0)
[2019-10-18 16:13] LABS: *AMPHETAMINES SCREEN URINE NEGATIVE (NEGATIVE); *BARBITURATES SCREEN URINE NEGATIVE (NEGATIVE); *BENZODIAZEPINES SCREEN URINE PRESUMTIVE POSITIVE (NEGATIVE); *COCAINE SCREEN URINE NEGATIVE (NEGATIVE); METHADONE URINE SCREEN NEGATIVE (NEGATIVE); OPIATES URINE SCREEN NEGATIVE (NEGATIVE)
[2019-10-18 16:14] LABS: CANNABINOID URINE SCREEN NEGATIVE (NEGATIVE); PHENCYCLIDINE URINE SCREEN NEGATIVE (NEGATIVE)
[2019-10-18 16:28] LABS: PLATELET ESTIMATE NORMAL
[2019-10-18 21:40] VITALS: BP 137/71
== END 2019-10-18 21:45 | disposition home or self-care (01) ==
LOC: ER 13:33
DX: R56.9 Unspecified convulsions (principal); R89.2 Abnormal level of other drugs, medicaments and biological substances in specimens from other organs, systems and tissues; Z79.899 Other long term (current) drug therapy
CPT/HCPCS: 36415; 70450; 80053; 80184; 80185; 80305; 80320; 81003; 82962; 85025; 93005; 96365; 96366; 99285; J1165; J7050; G0480

== ENCOUNTER 2024-03-24 17:58 | Emergency (ER) | payer MEDICAID ==
[~2024-03-24] VITALS: Ht 172.7 cm; Wt 65.0 kg
[~2024-03-24 17:58] MED LIST changes: +CHLO25CA11 PO; -L25 PO; +LEVE500T9 PO
[2024-03-24 18:03] VITALS: O2SAT 98
[2024-03-24] MEDS: LEVETIRACETAM 1000MG PREMIX 100 ML IV ONE (18:44)
[2024-03-24 18:49] LABS: BASOPHILS % 1.5 % (0.0-2.0); EOSINOPHILS % 2.4 % (0.0-5.0); HEMATOCRIT. 40.6 % (42.0-52.0); HEMOGLOBIN. 13.5 g/dL (14.0-18.0); LYMPHOCYTES % 32.7 % (20.0-50.0); MEAN CORPUSCULAR HEMOGLOBIN 30.8 pg (28.0-32.0); MEAN CORPUSCULAR HGB CONC 33.3 g/dL (31.0-37.0); MEAN CORPUSCULAR VOLUME 92.7 fL (80.0-94.0); MEAN PLATELET VOLUME 9.1 fl (7.4-10.4); MONOCYTES % 7.2 % (2.0-8.0); NEUTROPHILS % 56.2 % (40.0-76.0); PLATELET 250 x1000/uL (130-400); RED BLOOD CELL COUNT 4.38 mill/uL (4.7-6.1); RED CELL DISTRIBUTION WIDTH 14.5 % (11.6-14.6); WHITE BLOOD COUNT 6.8 x1000/uL (4.5-11.0)
[2024-03-24 18:55] LABS: DIFFERENTIAL COMMENT 1
[2024-03-24 19:01] LABS: CHLORIDE 104 mEq/L (98-107); POTASSIUM 4.8 mEq/L (3.5-5.1); SODIUM 139 mEq/L (136-145)
[2024-03-24 19:02] LABS: CALCIUM 9.5 mg/dL (8.7-10.4); CARBON DIOXIDE 20 mEq/L (21-32)
[2024-03-24 19:07] LABS: GLUCOSE 108 mg/dL (70-105); UREA NITROGEN BLOOD 8 mg/dL (9-23)
[2024-03-24 19:08] LABS: ETHANOL BLOOD < 10 mg/dL (<10); TROPONIN I HIGH SENSITIVITY < 4 ng/L (3.0-53)
[2024-03-24 20:43] LABS: TROPONIN I HIGH SENSITIVITY < 4 ng/L (3.0-53)
[2024-03-24 21:28] VITALS: BP 133/79; PULSE 75; RESP 17; TEMP 36.9; O2SAT 99
== END 2024-03-24 21:30 | disposition home or self-care (01) ==
LOC: ER 17:58 → EDBEDREQ 19:07 → ER 21:30
DX: G40.909 Epilepsy, unspecified, not intractable, without status epilepticus (principal); G93.89 Other specified disorders of brain; I10 Essential (primary) hypertension; E78.5 Hyperlipidemia, unspecified; F10.239 Alcohol dependence with withdrawal, unspecified; Z79.899 Other long term (current) drug therapy; Z79.52 Long term (current) use of systemic steroids; Y90.9 Presence of alcohol in blood, level not specified
CPT/HCPCS: 80048; 80320; 85025; 84484; 36415; 71045; 70450; 93005; 96365; 99285; J1953; G0480